=== PATIENT | female | born 1965 | race Hispanic/Latino ===

== ENCOUNTER 2020-03-15 13:09 | Emergency (ER) | payer OTHER ==
[~2020-03-15] VITALS: Ht 152.4 cm; Wt 95.3 kg
[~2020-03-15 13:09] MED LIST: CIPRO500 MG PO; FEXOFENADINE H180 MG PO; LEVOTHYROXINE100 MC1 IV; LEVOTHYROXINE75 MCG PO; LOSARTAN-HCTZ1 EACH PO; MECLIZINE HCL12.5 MG PO; METOPROLOL SUCC50 MG PO; METOPROLOL TART50 MG PO; OMEPRAZOLE40 MG PO; SYNTHROID125 MCG PO
[2020-03-15] MEDS ORDERED: SODIUM CHLORIDE 0.9% 1000ML 1,000 ML IV STA (13:50)
[2020-03-15] MEDS ORDERED: ONDANSETRON HCL INJ 2MG/ML 2ML 2 MG/ML VIAL IV ONE (14:00)
[2020-03-15] MEDS ORDERED: PANTOPRAZOLE 40 MG 10ML VIAL IV ONE (14:00)
[2020-03-15 14:35] LABS: BASOPHILS % 0.3 % (0.0-1.0); EOSINOPHILS # (AUTO) 0.2 (0.0-0.4); EOSINOPHILS % 2.3 % (0.0-6.0); HEMATOCRIT 43.8 % (34.2-44.1); HEMOGLOBIN 14.2 g/dL (12.0-16.0); LYMPHOCYTES # (AUTO) 1.9 (1.0-3.2); LYMPHOCYTES % 27.4 % (18.0-39.1); MEAN CORPUSCULAR HEMOGLOBIN 30.5 pg (28-32); MEAN CORPUSCULAR HGB CONC 32.4 g/dL (31-35); MEAN CORPUSCULAR VOLUME 94.2 fL (81-99); MONOCYTES # (AUTO) 0.5 (0.2-0.8); MONOCYTES % 6.4 % (4.4-11.3); NEUTROPHILS # (AUTO) 4.5 (2.1-6.9); NEUTROPHILS % 63.3 % (38.7-80.0); PLATELET COUNT 249 x10e3/uL (140-360); RED BLOOD COUNT 4.65 x10e6/uL (3.6-5.1); RED CELL DISTRIBUTION WIDTH 12.9 % (11.7-14.4)
[2020-03-15 14:49] LABS: INR 0.85; PROTHROMBIN TIME 12.1 seconds (11.9-14.5)
[2020-03-15 14:50] LABS: PARTIAL THROMBOPLASTIN TIME 30.7 seconds (23.8-35.5)
[2020-03-15 15:05] LABS: ALANINE AMINOTRANSFERASE 15 IU/L (0-55); ALBUMIN 4.1 g/dL (3.5-5.0); ALBUMIN/GLOBULIN RATIO 1.1 (0.8-2.0); ALKALINE PHOSPHATASE 76 IU/L (40-150); ANION GAP 15.7 mmol/L (8-16); BLOOD UREA NITROGEN 7 mg/dL (7-26); BUN/CREATININE RATIO 9 (6-25); CALCIUM 8.9 mg/dL (8.4-10.2); CARBON DIOXIDE 24 mmol/L (22-29); CHLORIDE 104 mmol/L (98-107); CREATINE KINASE 59 IU/L (29-168); CREATININE, SERUM 0.77 mg/dL (0.57-1.11); EST GLOMERULAR FILTRATION RATE > 60 ML/MIN (60-); GLUCOSE 164 mg/dL (74-118); MAGNESIUM 1.7 MG/DL (1.3-2.1); POTASSIUM 3.7 mmol/L (3.5-5.1); SODIUM 140 mmol/L (136-145)
== END 2020-03-15 16:49 | disposition home or self-care (01) ==
LOC: ER 13:20
DX: R11.2 Nausea with vomiting, unspecified (principal); R19.7 Diarrhea, unspecified; R51.9 Headache, unspecified; R42 Dizziness and giddiness; E11.65 Type 2 diabetes mellitus with hyperglycemia; I10 Essential (primary) hypertension; E78.5 Hyperlipidemia, unspecified; E03.9 Hypothyroidism, unspecified; K21.9 Gastro-esophageal reflux disease without esophagitis
CPT/HCPCS: 36415; 80053; 82550; 82553; 83735; 84484; 85025; 85610; 85730; 99284; C9113; J2405; J7030

== ENCOUNTER → 2020-11-05 | Outpatient (CLI) | payer OTHER ==
[~2020-11-05] MED LIST changes: +LORAZEPAM INJ 2 MG/ML VIAL ONE
== END ==
LOC: MRI 08:26
PROVIDERS: ATTEND Specialist
DX: M54.42 Lumbago with sciatica, left side (principal); M54.41 Lumbago with sciatica, right side; G89.29 Other chronic pain; Z20.822 Contact with and (suspected) exposure to COVID-19
CPT/HCPCS: 72148; J2060; U0002

== ENCOUNTER → 2020-11-17 | Outpatient (CLI) | payer OTHER ==
[~2020-11-17] MED LIST changes: -LORAZEPAM INJ 2 MG/ML VIAL ONE
== END ==
LOC: US 07:41
PROVIDERS: ATTEND Internal Medicine Gastroenterology
DX: R10.11 Right upper quadrant pain (principal)
CPT/HCPCS: 76700

== ENCOUNTER → 2022-07-21 | Outpatient (CLI) | payer OTHER ==
[~2022-07-21] MED LIST changes: +ATIVAN1 MG PO; +CILOSTAZOL100 MG PO; +FARXIGA10 MG PO; +LEVOTHYROXINE150 MCG PO; +LOPRESSOR25 MG IVP; +LOSARTAN POTASS50 MG PO; +METOPROLOL TART25 MG PO; +PREGABALIN150 MG PO; +ROSUVASTATIN CAL5 MG PO
== END ==
LOC: MAMMO 13:21
PROVIDERS: ATTEND Internal Medicine
DX: Z12.31 Encounter for screening mammogram for malignant neoplasm of breast (principal); M85.88 Other specified disorders of bone density and structure, other site
CPT/HCPCS: 77067; 77080

== ENCOUNTER 2022-07-24 10:17 | Observation (INO) | payer OTHER ==
[~2022-07-24] VITALS: Ht 157.5 cm; Wt 81.6 kg
[~2022-07-24 10:17] MED LIST changes: -ATIVAN1 MG PO; -CILOSTAZOL100 MG PO; -FARXIGA10 MG PO; -LEVOTHYROXINE150 MCG PO; -LOPRESSOR25 MG IVP; -LOSARTAN POTASS50 MG PO; -METOPROLOL TART25 MG PO; -PREGABALIN150 MG PO; -ROSUVASTATIN CAL5 MG PO
[2022-07-24] MEDS ORDERED: ONDANSETRON HCL INJ 2MG/ML 2ML 2 MG/ML VIAL IV STA (10:43)
[2022-07-24] MEDS ORDERED: SODIUM CHLORIDE 0.9% 1000ML 1,000 ML IV ONE (10:45)
[2022-07-24] MEDS ORDERED: SODIUM CHLORIDE 0.9% 1000ML 1,000 ML ONE ×2 (10:48→13:49)
[2022-07-24] MEDS ORDERED: ONDANSETRON HCL INJ 2MG/ML 2ML 2 MG/ML VIAL ONE (10:48)
[2022-07-24] MEDS ORDERED: POTASSIUM CHLORIDE 20 MEQ TAB CR PO STA (11:11)
[2022-07-24] MEDS ORDERED: POTASSIUM CHLORIDE 20MEQ/100ML 200 ML IV ONE (11:30)
[2022-07-24] MEDS ORDERED: POTASSIUM CHLORIDE 20MEQ/100ML 0 ML ONE (11:41)
[2022-07-24] MEDS ORDERED: CEFTRIAXONE 1 GM VIAL IM ONE (11:45)
[2022-07-24] MEDS ORDERED: CEFTRIAXONE 1 GM VIAL ONE (11:51)
[2022-07-24] MEDS ORDERED: POTASSIUM CHLORIDE 20 MEQ TAB CR PO ONE (11:51)
[2022-07-24] MEDS ORDERED: POTASSIUM CHLORIDE 20MEQ/100ML 100 ML ONE (13:49)
[2022-07-24 14:03] LABS: BASOPHILS % 0.4 % (0.0-1.0); EOSINOPHILS % 0.3 % (0.0-6.0); HEMATOCRIT 42.4 % (34.2-44.1); HEMOGLOBIN 13.8 g/dL (12.0-16.0); LYMPHOCYTES # (AUTO) 1.4 (1.0-3.2); LYMPHOCYTES % 15.2 % (18.0-39.1); MEAN CORPUSCULAR HEMOGLOBIN 31.2 pg (28-32); MEAN CORPUSCULAR HGB CONC 32.5 g/dL (31-35); MEAN CORPUSCULAR VOLUME 95.9 fL (81-99); MONOCYTES # (AUTO) 0.3 (0.2-0.8); MONOCYTES % 3.6 % (4.4-11.3); NEUTROPHILS # (AUTO) 7.1 (2.1-6.9); NEUTROPHILS % 80.2 % (38.7-80.0); PLATELET COUNT 217 x10e3/uL (140-360); RED BLOOD COUNT 4.42 x10e6/uL (3.6-5.1); RED CELL DISTRIBUTION WIDTH 12.8 % (11.7-14.4)
[2022-07-24 14:21] LABS: ALANINE AMINOTRANSFERASE 15 IU/L (0-55); ALBUMIN 3.7 g/dL (3.5-5.0); ALBUMIN/GLOBULIN RATIO 1.1 (0.8-2.0); ALKALINE PHOSPHATASE 58 IU/L (40-150); BLOOD UREA NITROGEN 7 mg/dL (7-26); BUN/CREATININE RATIO 10 (6-25); CALCIUM 8.9 mg/dL (8.4-10.2); CARBON DIOXIDE 23 mmol/L (22-29); CHLORIDE 110 mmol/L (98-107); CREATINE KINASE 40 IU/L (29-168); CREATININE, SERUM 0.67 mg/dL (0.57-1.11); GLUCOSE 127 mg/dL (74-118); SODIUM 143 mmol/L (136-145)
[2022-07-24] MEDS ORDERED: CILOSTAZOL100 MG PO (16:43)
[2022-07-24] MEDS ORDERED: LEVOTHYROXINE150 MCG PO (16:43)
[2022-07-24] MEDS ORDERED: PREGABALIN150 MG PO (16:43)
[2022-07-24] MEDS ORDERED: METOPROLOL TART25 MG PO (16:44)
[2022-07-24] MEDS ORDERED: LOPRESSOR25 MG IVP (16:48)
[2022-07-24] MEDS ORDERED: ATIVAN1 MG PO (16:48)
[2022-07-24] MEDS ORDERED: METOPROLOL TARTRATE 25 MG TAB PO SCH (17:00)
[2022-07-24] MEDS ORDERED: SODIUM CHLORIDE 0.9% 1000ML 1,000 ML IV SCH (17:00)
[2022-07-24] MEDS ORDERED: LORAZEPAM 1 MG TAB PO PRN (17:00)
[2022-07-24] MEDS ORDERED: CILOSTAZOL 100 MG TAB PO SCH (17:00)
[2022-07-24] MEDS ORDERED: METOPROLOL TARTRATE INJ 1 MG/ML VIAL IV PRN (17:15)
[2022-07-24] MEDS: METOPROLOL TARTRATE 25 MG TAB PO SCH (17:31)
[2022-07-24] MEDS: SODIUM CHLORIDE 0.9% 1000ML 1,000 ML IV SCH (17:32)
[2022-07-24 20:00] VITALS: BP 108/62
[2022-07-24] MEDS: CILOSTAZOL 100 MG TAB PO SCH (20:11)
[2022-07-24 20:30] VITALS: BP 108/62
[2022-07-24 20:42] VITALS: BP 108/62
[2022-07-24 23:59] VITALS: BP 135/82
[2022-07-25] MEDS: SODIUM CHLORIDE 0.9% 1000ML 1,000 ML IV SCH ×2 (05:16→21:47)
[2022-07-25 05:27] VITALS: BP 134/81
[2022-07-25] MEDS: PREGABALIN 75 MG CAP PO SCH ×2 (08:22→08:27)
[2022-07-25] MEDS: LEVOTHYROXINE SODIUM 75 MCG TAB PO SCH ×2 (08:22→08:27)
[2022-07-25] MEDS: CILOSTAZOL 100 MG TAB PO SCH ×2 (08:23→16:30)
[2022-07-25] MEDS: METOPROLOL TARTRATE 25 MG TAB PO SCH ×2 (08:23→16:29)
[2022-07-25 08:27] VITALS: BP 131/84
[2022-07-25 11:57] LABS: BASOPHILS % 0.3 % (0.0-1.0); EOSINOPHILS # (AUTO) 0.3 (0.0-0.4); EOSINOPHILS % 3.6 % (0.0-6.0); HEMATOCRIT 40.7 % (34.2-44.1); HEMOGLOBIN 13.2 g/dL (12.0-16.0); LYMPHOCYTES % 29.4 % (18.0-39.1); MEAN CORPUSCULAR HGB CONC 32.4 g/dL (31-35); MEAN CORPUSCULAR VOLUME 95.5 fL (81-99); MONOCYTES # (AUTO) 0.4 (0.2-0.8); MONOCYTES % 6.1 % (4.4-11.3); NEUTROPHILS # (AUTO) 4.2 (2.1-6.9); NEUTROPHILS % 60.5 % (38.7-80.0); PLATELET COUNT 197 x10e3/uL (140-360); RED BLOOD COUNT 4.26 x10e6/uL (3.6-5.1); RED CELL DISTRIBUTION WIDTH 13.3 % (11.7-14.4)
[2022-07-25 12:14] VITALS: BP 118/81
[2022-07-25 12:17] LABS: ALBUMIN 3.5 g/dL (3.5-5.0); ALBUMIN/GLOBULIN RATIO 1.1 (0.8-2.0); ANION GAP 9.9 mmol/L (8-16); CREATININE, SERUM 0.66 mg/dL (0.57-1.11); MAGNESIUM 1.8 MG/DL (1.3-2.1); POTASSIUM 3.9 mmol/L (3.5-5.1)
[2022-07-25] MEDS ORDERED: ROSUVASTATIN CAL5 MG PO (12:17)
[2022-07-25] MEDS ORDERED: FARXIGA10 MG PO (12:17)
[2022-07-25] MEDS: ACETAMINOPHEN 325 MG TAB PO PRN ×2 (14:01→23:48)
[2022-07-25 16:30] VITALS: BP 135/77
[2022-07-25 19:30] VITALS: BP 109/73
[2022-07-25 20:00] VITALS: BP 109/73
[2022-07-25] MEDS ORDERED: SIMVASTATIN 20 MG TAB PO SCH (21:00)
[2022-07-26] VITALS: BP 120/66
[2022-07-26 04:00] VITALS: BP 117/74
[2022-07-26 05:33] LABS: BASOPHILS % 0.5 % (0.0-1.0); EOSINOPHILS # (AUTO) 0.3 (0.0-0.4); EOSINOPHILS % 5.4 % (0.0-6.0); HEMATOCRIT 38.7 % (34.2-44.1); HEMOGLOBIN 12.5 g/dL (12.0-16.0); LYMPHOCYTES % 33.5 % (18.0-39.1); MEAN CORPUSCULAR HEMOGLOBIN 30.7 pg (28-32); MEAN CORPUSCULAR HGB CONC 32.3 g/dL (31-35); MEAN CORPUSCULAR VOLUME 95.1 fL (81-99); MONOCYTES # (AUTO) 0.4 (0.2-0.8); MONOCYTES % 7.5 % (4.4-11.3); NEUTROPHILS # (AUTO) 3.1 (2.1-6.9); NEUTROPHILS % 52.9 % (38.7-80.0); PLATELET COUNT 209 x10e3/uL (140-360); RED BLOOD COUNT 4.07 x10e6/uL (3.6-5.1)
[2022-07-26 06:05] LABS: CALCIUM 8.5 mg/dL (8.4-10.2); CREATININE, SERUM 0.63 mg/dL (0.57-1.11)
[2022-07-26] MEDS: PREGABALIN 75 MG CAP PO SCH (08:16)
[2022-07-26] MEDS: LEVOTHYROXINE SODIUM 75 MCG TAB PO SCH (08:16)
[2022-07-26] MEDS: METOPROLOL TARTRATE 25 MG TAB PO SCH (08:17)
[2022-07-26] MEDS: CILOSTAZOL 100 MG TAB PO SCH (08:17)
[2022-07-26] MEDS ORDERED: LOSARTAN POTASS50 MG PO (08:18)
[2022-07-26 08:24] VITALS: BP 147/87
[2022-07-26] MEDS ORDERED: Dapagliflozin Propanediol (Farxiga) 10 MG PO SCH (09:00)
[2022-07-26 09:06] VITALS: BP 147/87
[2022-07-26] MEDS ORDERED: POTASSIUM CHLORIDE 20 MEQ TAB CR PO ONE (11:30)
[2022-07-26] MEDS ORDERED: LOSARTAN POTASSIUM 25 MG TAB PO SCH (12:30)
[2022-07-26 12:51] VITALS: BP 135/85
== END 2022-07-26 13:57 | disposition home or self-care (01) ==
LOC: FSED 10:43 → ERHOLD 11:42 → MED/SURG3 18:10 → MED/SURG 07-25 12:05
PROVIDERS: ADMIT Internal Medicine; ATTEND Internal Medicine
DX: J01.30 Acute sphenoidal sinusitis, unspecified (principal); R42 Dizziness and giddiness; R94.31 Abnormal electrocardiogram [ECG] [EKG]; I10 Essential (primary) hypertension; E11.9 Type 2 diabetes mellitus without complications; E78.5 Hyperlipidemia, unspecified; E03.9 Hypothyroidism, unspecified; E87.6 Hypokalemia; R19.7 Diarrhea, unspecified; I87.2 Venous insufficiency (chronic) (peripheral); I73.9 Peripheral vascular disease, unspecified; K21.9 Gastro-esophageal reflux disease without esophagitis; Z88.2 Allergy status to sulfonamides; Z88.8 Allergy status to other drugs, medicaments and biological substances; Z79.02 Long term (current) use of antithrombotics/antiplatelets; Z79.899 Other long term (current) drug therapy; Z68.32 Body mass index [BMI] 32.0-32.9, adult
CPT/HCPCS: 36415 ×3; 70450; 80048; 80053 ×2; 80320; 81003; 82550; 82553; 82948; 83735; 83880; 84436; 84443; 84479; 84484; 85025 ×3; 85379; 93005; 96374; 99284; G0378 ×3; J0696 ×2; J2405; J3480; J7030 ×2; U0002

== ENCOUNTER → 2023-01-18 | Outpatient (REF) | payer OTHER ==
[~2023-01-18] MED LIST changes: +ATIVAN1 MG PO; +CILOSTAZOL100 MG PO; +FARXIGA10 MG PO; +LEVOTHYROXINE150 MCG PO; +LOPRESSOR25 MG IVP; +LOSARTAN POTASS50 MG PO; +METOPROLOL TART25 MG PO; +PREGABALIN150 MG PO; +ROSUVASTATIN CAL5 MG PO
== END ==
LOC: US 08:40
PROVIDERS: ATTEND Student in an Organized Health Care Education/Training Program
DX: R10.9 Unspecified abdominal pain (principal); R10.2 Pelvic and perineal pain
CPT/HCPCS: 76700; 76856

== ENCOUNTER → 2023-11-15 | Outpatient (REF) | payer OTHER | LOC: MAMMO 12:20 | PROVIDERS: ATTEND Student in an Organized Health Care Education/Training Program | DX: Z12.31 Encounter for screening mammogram for malignant neoplasm of breast (principal); M85.88 Other specified disorders of bone density and structure, other site; N95.9 Unspecified menopausal and perimenopausal disorder | CPT/HCPCS: 77067; 77080 ==

== ENCOUNTER → 2024-10-09 | Outpatient (REF) | payer OTHER | LOC: DX 12:43 | PROVIDERS: ATTEND Internal Medicine | DX: M85.88 Other specified disorders of bone density and structure, other site (principal) | CPT/HCPCS: 77080 ==